=== PATIENT | male | born 1965 | race Caucasian/White ===

== ENCOUNTER → 2016-09-17 | Outpatient (CLI) | payer BC ==
[~2016-09-17] MED LIST: ALLEGRA PO; AMBIEN PO; BIAXIN PO; IBUPROFEN800 MG PO; LEVAQUIN PO; LORTAB 7.5-5001 TAB PO; NEXIUM PO; OMEPRAZOLE40 MG PO; VITAMIN C500 M1 PO; ZYRTEC-D T1 TAB.SR . PO
--- NOTE | ~2016-09-17 | EKG ---
PATIENT: MARIZA DAVIS UNIT #: [id number] Ventricular Rate: 85 BPM Atrial Rate: 85 BPM P-R Interval: 156 ms QRS Duration: 104 ms Q-T Interval: 394 ms QTC Calculation(Bezet): 468 ms P [place]: 28 degrees Calculated R [place]: 6 degrees Calculated T [place]: 32 degrees Diagnosis Line: Normal sinus rhythm Diagnosis Line: Normal ECG Diagnosis Line: No previous ECGs available Diagnosis Line: Confirmed by BRENDA CHAPMAN MD ([id number]) on Diagnosis Line: 09/20/2016 9:35:25 PM INTERPRETING MD: ARI TELLEZ
[2016-09-17 11:47] LABS: HEMATOCRIT 43.7 % (38.0-50.0); HEMOGLOBIN 15.3 gm/dL (13.0-16.0); MEAN CORPUSCULAR HEMOGLOBIN 31.1 PG (28-34); MEAN CORPUSCULAR HGB CONC 34.9 g/dL (30-36); MEAN PLATELET VOLUME 7.9 FL (6.5-11.5); RED BLOOD COUNT 4.92 X10e (3.90-5.60); RED CELL DISTRIBUTION WIDTH 12.6 % (11.0-15.5); WHITE BLOOD COUNT 9.7 X10e3 (4.0-10.5)
== END | disposition home or self-care (01) ==
LOC: SLAB 11:36
PROVIDERS: Orthopaedic Surgery
DX: Z01.818 Encounter for other preprocedural examination (principal); S86.312A Strain of muscle(s) and tendon(s) of peroneal muscle group at lower leg level, left leg, initial encounter
CPT/HCPCS: 36415; 85027; 93005